=== PATIENT | female | born 1995 | race Caucasian/White ===

== ENCOUNTER 2017-12-16 11:09 | Emergency (ER) | payer OTHER ==
[2017-12-16 13:06] VITALS: BP 112/66
--- NOTE | 2017-12-16 13:17 | UC ---
Skin Complaint HPI - HPI Summary HPI Summary: states she started with itchy rash on face, back of neck , right wrist and left elbow 2 days ago, had contact with poison [place]. Denies fever, chills, malaise. States she feels itch all over body. Denies SOB, wheezing or dysphagia - History of Current Complaint Chief Complaint: UCS[place] Time Seen by Provider: 12/16/17 13:05 Stated Complaint: RASH/POISON [place] Hx Obtained From: Patient Hx Last Menstrual Period: 12/03/17 ?: No Onset/Duration: Sudden Onset, Lasting Days Skin Exposure Onset/Duration: Days Ago Onset Severity: Mild Current Severity: Moderate Pain Intensity: 0 Location: Diffuse Aggravating Factor(s): Touch, Other - sun Alleviating Factor(s): Nothing Associated Signs & Symptoms: Positive: Negative Related History: Possible Reaction to: Environmental Exposure - Allergy/Home Medications Allergies/Adverse Reactions: Allergies Allergy/AdvReac Type Severity Reaction Status Date / Time No Known Allergies Allergy Verified 12/16/17 12:58 Home Medications: Home Medications Amitriptyline TAB* [Elavil TAB*] 20 mg QPM 12/16/17 [History Confirmed 12/16/17] Ethynodiol D-Ethinyl Estradiol [Kelnor 1-35 28 Tablet] 1 tab QPM 12/16/17 [ History Confirmed 12/16/17] SUMAtriptan TAB* [Imitrex TAB*] 1 tab TID PRN 12/16/17 [History Confirmed ] Review of Systems All Other Systems Reviewed And Are Negative: Yes PMH/Surg Hx/FS Hx/Imm Hx Previously Healthy: Yes - Surgical History Surgical History: None - Family History Known Family History: Positive: None - Social History Alcohol Use: Occasionally Substance Use Type: None Smoking Status (MU): Never Smoked Tobacco Physical Exam Triage Information Reviewed: Yes Appearance: Well-Appearing, No Pain Distress, Well-Nourished Vital Signs: Initial Vital Signs Temp 98.6 F 12/16/17 13:00 Pulse 71 12/16/17 13:00 Resp 16 12/16/17 13:00 BP 112/66 12/16/17 13:00 Pulse Ox 100 12/16/17 13:00 Vital Signs Reviewed: Yes Eyes: Positive: Conjunctiva Clear Neck: Positive: Supple, Nontender Respiratory: Positive: Chest non-tender, Lungs clear Cardiovascular: Positive: RRR, No Murmur, Pulses Normal, Brisk Capillary Refill Abdomen Description: Positive: Nontender Musculoskeletal: Positive: Strength Intact, ROM Intact, No Edema Skin Exam: Other - papular rash along escoriation pool on dorsum right wrist, distal neck on dorsal aspect, left elbow medial epicondyle, legs Course/Dx - Course Course Of Treatment: start prednisone and hydrocort as prescribed, avoid scratching and sun exposure. f/u with PCP - Diagnoses Provider Diagnoses: poison [place] Discharge - Sign-Out/Discharge Documenting (check all that apply): Discharge/Admit/Transfer - Discharge Plan Condition: Stable Disposition: HOME Prescriptions: Hydrocortisone 2.5% CREAM(NF) 1 applic TOPICAL BID 7 Days #1 tube predniSONE TAB* [Deltasone 20 MG TAB*] 40 mg PO DAILY 5 Days #10 tab Patient Education Materials: Poison [place] (ED), Prednisone (By mouth), Hydrocortisone (On the skin) Referrals: Cj Webb MD [Primary Care Provider] - - Billing Disposition and Condition Condition: STABLE Disposition: Home
== END 2017-12-16 13:24 | disposition home or self-care (01) ==
LOC: UCCORT 11:09
DX: L23.7 Allergic contact dermatitis due to plants, except food (principal); T63.791A Toxic effect of contact with other venomous plant, accidental (unintentional), initial encounter; Y92.9 Unspecified place or not applicable
CPT/HCPCS: 99212; G0463